=== PATIENT | male | born 2000 | race Two or more races ===

== ENCOUNTER 2021-08-21 21:09 | Emergency (ER) | payer SELFPAY ==
[~2021-08-21] VITALS: Ht 167.6 cm; Wt 69.9 kg
[2021-08-21 21:12] VITALS: BP 110/83
== END 2021-08-21 21:20 | disposition left against medical advice (07) ==
LOC: ER 21:09 → EDBD 21:09 → ER 21:20
DX: T40.411A Poisoning by fentanyl or fentanyl analogs, accidental (unintentional), initial encounter (principal); Z53.21 Procedure and treatment not carried out due to patient leaving prior to being seen by health care provider; Y92.89 Other specified places as the place of occurrence of the external cause